=== PATIENT | female | born 1955 | race Caucasian/White ===

== ENCOUNTER 2024-06-15 07:26 | Emergency (ER) | payer BC, SELFPAY ==
[2024-06-15] MEDS ORDERED: Meclizine HCl 25 MG TAB ONE (08:11)
[2024-06-15] MEDS ORDERED: Sodium Chloride 0.9% 1,000 ML ONE (08:11)
[2024-06-15 08:26] LABS: #Basophils 0.1 thou/uL (0.0-0.2); #Eosinophils 0.1 thou/uL (0.0-0.7); #Lymphocytes 2.3 thou/uL (1.20-3.40); #Monocytes 0.6 thou/uL (0.11-0.59); #Neutrophils 7.2 thou/uL (1.40-6.50); %Basophils 1.1 % (0.0-1.0); %Eosinophils 1.4 % (0.0-10.0); %Lymphocytes 22.4 % (21.0-51.0); %Monocytes 5.8 % (0.0-10.0); %Neutrophils 69.3 % (42.0-75.0); Hematocrit 46.7 % (36.0-47.0); Hemoglobin 14.8 g/dL (12.0-16.0); Mean Corpuscular HGB CONC 31.6 g/dL (32.0-36.0); Mean Corpuscular Hemoglobin 29.2 pg (27.0-31.0); Mean Corpuscular Volume 92.5 fl (78.0-98.0); Mean Platelet Volume 7.8 fL (7.4-10.4); Platelet Count 261 10x3/uL (130-400); RBC Distribution Width 12.3 % (11.5-14.5); Red Blood Cell (RBC) Count 5.05 mill/uL (4.20-5.40); White Blood Cell (WBC) Count 10.3 10x3/uL (4.8-10.8)
[2024-06-15 08:44] LABS: ALT (SGPT) 13 U/L (8-55); AST (SGOT) 11 U/L (5-34); Albumin 3.6 g/dL (3.4-4.8); Alkaline Phosphatase 76 U/L (40-110); Anion Gap 15 mmol/L (10-20); BUN (Urea Nitrogen) 9 mg/dL (9.8-20.1); Bilirubin, Total 0.3 mg/dL (0.2-1.2); Calc. Creatinine Clearance 0 mL/min (70-130); Calcium 9.8 mg/dL (7.8-10.44); Carbon Dioxide 23 mmol/L (23-31); Chloride 106 mmol/L (98-107); Estimated GFR 90; Globulin 3.1 g/dL (2.4-3.5); Glucose 110 mg/dL (80-115); Potassium 4.2 mmol/L (3.5-5.1); Protein, Total 6.7 g/dL (5.8-8.1); Sodium 140 mmol/L (136-145)
[2024-06-15 09:19] LABS: Bilirubin Negative (Negative); Blood, Urine Trace (Negative); Clarity Clear (Clear); Glucose, Urine (Dipstick) Negative (Negative); Ketone, Urine Negative (Negative); Leukocyte Negative (Negative); Nitrite Negative (Negative); Protein, Urine (Dipstick) Negative (Neg-Trace); Urobilinogen 0.2 mg/dL (Less than 2); pH, Urine 5.5 (5.0-9.0)
[2024-06-15 09:21] LABS: Specific Gravity, Urine 1.005 (1.002-1.036)
[2024-06-15 09:24] LABS: Bacteria/HPF None Seen HPF (None Seen); CAUTI Indications for Culture Alt mental st,lethar; RBC/HPF 0-3 HPF (0-3); Squamous Epithelial 0-3 HPF (0-3); Urine Culture Reflex No No; WBC/HPF None Seen HPF (0-3)
== END 2024-06-15 09:16 | disposition home or self-care (01) ==
LOC: NAV ERS 07:26
DX: R42 Dizziness and giddiness (principal); R29.700 NIHSS score 0; E78.5 Hyperlipidemia, unspecified; F17.210 Nicotine dependence, cigarettes, uncomplicated
CPT/HCPCS: 36415; 80053; 81001; 85025; 93005; 99284; J7030